=== PATIENT | female | born 1960 | race Caucasian/White ===

== ENCOUNTER 2022-10-08 15:48 | Emergency (ER) | payer BC ==
[~2022-10-08] VITALS: Ht 167.6 cm; Wt 102.0 kg
[2022-10-08] VITALS (8 sets, daily range): BP systolic 113–142; BP diastolic 47–76
[2022-10-08] MEDS ORDERED: NAPROXEN500 MG PO (17:18)
== END 2022-10-08 17:34 | disposition home or self-care (01) | DRG 563 ==
LOC: ED 15:48
DX: S83.91XA Sprain of unspecified site of right knee, initial encounter (principal); X50.0XXA Overexertion from strenuous movement or load, initial encounter; Y93.89 Activity, other specified